=== PATIENT | male | born 1970 ===

== ENCOUNTER 2025-01-11 11:26 | Emergency (ER) | payer OTHER, SELFPAY ==
[2025-01-11 11:43] VITALS: BP 113/54; PULSE 77; RESP 18; TEMP 36.3; O2SAT 100; BMI 23.4
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
[2025-01-11 12:05] VITALS: BP 113/54; PULSE 77; RESP 18; TEMP 36.3; O2SAT 100
--- OUTSIDE RECORDS SUMMARY | 2025-01-11 14:17 | XMS_ITS | Clinical Summary ---
Author Organization [place] [address] [address] [facility] Building Address [address] [place] [address] Phone Care Team Providers Care Cycle Manager Name Role Phone Morgan Parks MD Primary Care Provider [phone] Allergies No known active allergies Medications tiZANidine (Zanaflex) 4 mg tablet Take 1 tablet (4 mg total) by mouth 3 (three) times a day if needed for muscle spasms for up to 10 days. 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 (CMS/HCC V24) 12/28/2019 Elevated rheumatoid factor 03/29/2017 Pain in both hands 03/29/2017 Overview (07/13/2024): S/p CTS release Pain in joints of both feet 03/29/2017 Intrinsic eczema 02/25/2017 Hyperopia with astigmatism and presbyopia 2016 Irritable bowel syndrome 10/05/2016 Cervical spinal stenosis 09/13/2015 Marijuana use 07/14/2015 Immunizations Immunization Administration Dates Next Due Influenza Quadravalent, MDCK , 0.5ml, preservative free (Flucelvax) 6mo and older 01/05/2022,01/27/2021 Influenza trivalent, 0.5mL, preservative free (Fluarix; FluLaval; Fluzone) ages 6mo and older (Afluria) 3 years and older 12/03/2015 Pfizer SARS-CoV-2 COVID-19, mRNA, LNP-S, preservative free 08/23/2021,08/02/2021,01/15/2021 Tdap Tetanus diptheria acell ular pertussis (Boostrix; Adacel) 7yo and older 06/12/2018 Surgical History Surgery Date Site/Laterality Comments COLONOSCOPY 02/24/2016 PROCEDURE: HISTORICAL COLONOSCOPY; COMMENT: Normal exam ESOPHAGOGASTRODUODENOSCOPY PROCEDURE: ID ESOPHAGOGASTRODUODENOSCOPY TRANSORAL DIAGNOSTIC CARPAL TUNNEL RELEASE Bilateral PROCEDURE: HISTORICAL CARPAL TUNNEL REL Medical History Medical History Date Comments CTS (carpal tunnel syndrome) 09/13/2015 DX: CTS (carpal tunnel syndrome); COMMENT: bilateral Cervical spinal stenosis 09/13/2015 DX:Cerv ical spinal stenosis Helicobacter pylori gastritis 03/28/2017 DX :Helicobacter pylori gastritis Asthma DX:Asthma Irritable bowel syndrome DX:Irri table bowel syndrome Trigger finger of right thumb 12/28/2019 DX :Trigger finger of right thumb Family History Medical History Relation Name Comments Arthritis Father Diabetes Father Hypertension Father Arthritis Mother Diabetes Mother alzheimers Hypertension Mother Blindness Sister 1 Arthritis Sister 2 Other: IBS Sister 2 Cataracts Neg Hx Glaucoma Neg Hx Macular degeneration Neg Hx Strabismus Neg Hx Relation Name Status Comments Father Alive Mother Sister 1 Alive Sister 2 Alive Social History Tobacco Use Types Packs/Day Years Used Date Smoking Tobacco: Former Cigarettes S tarted: 1994 Smokeless Tobacco: Current Tobacco Cessation:Ready to Q uit: Not Asked; Counseling Given: Not Answered Alcohol Use Standard Drinks/Week Comments No 0 (1 standard drink = 0.6 oz pur e alcohol) Sex and Gender Information Value Date Recorded Sex Assigned at Not on file Legal Sex Male 1:10 PM EST Gender Identity Not on file Sexual Orientation Not on file Obstetrics History Last Filed Vital Signs Vital Sign Reading Time Taken Comments Blood Pressure 110/60 07/16/2024 9:11 AM EDT Pulse 70 07/16/2024 9:11 AM EDT Temperature - - Respiratory Rate - - Oxygen Saturation - - Inhaled Oxygen Concentration - - Weight 68 kg (150 lb) 07/16/2024 9:11 AM EDT Height 162.6 cm (5' 4 ) 07/16/2024 9:11 AM EDT Body Mass Index 25.75 07/16/2024 9:11 AM EDT Plan of Treatment Health Maintenance Due Date Last Done Comments Colorectal Cancer Screening: Colonoscopy 1970 Hepatitis B Vaccines (1 of 3 - 19+ 3-dose series) 1989 Pneumococcal Vaccine: 50+ Years (1 of 1 - PCV) 2020 Zoster Vaccines (1 of 2) 2020 HIV Screening 02/16/2022 Hepatitis C Screening 02/16/2022 Medicare Annual Wellness Visit 02/16/2022 Social Influencers of Health Screening 02/16/2022 Depression Screening 03/21/2024 COVID-19 Vaccine ( - season) 2024 08/23/2021, 08/02/2021, 01/15/2021 Influenza Vaccine (#1) 2024 , 01/05/2022, 01/27/2021, Additional history exists DTaP,Tdap,and Td Vaccines (2 - Td or Tdap) 06/12/2028 06/12/2018 Cholesterol Screening (Lipid Panel) 12/13/2028 12/14/2023, 12/14/2023 RSV Immunization Adult Patients (1 - 1-dose 75+ series) 2045 HIB Vaccines Aged Out No longer eligi ble based on patient's age to complete this topic HPV Vaccines Aged Out No longer eligi ble based on patient's age to complete this topic Hepatitis A Vaccines Aged Out No long er eligible based on patient's age to complete this topic IPV Vaccines Aged Out No longer eligi ble based on patient's age to complete this topic MMR Vaccines Aged Out No longer eligi ble based on patient's age to complete this topic Meningococcal ACWY Vaccine Aged Out N o longer eligible based on patient's age to complete this topic Meningococcal B Vaccine Aged Out No l onger eligible based on patient's age to complete this topic RSV Immunization Patients Under 20 months Aged Out No longer eligible based on patient's age to complete this topic Varicella Vaccines Aged Out No longer eligible based on patient's age to complete this topic Procedures Procedure Name Priority Date/Time Associated Diagnosis Comments LIPID PANEL Routine 12/14/2023 from Last 3 Months or Most Recently Relevant to Health Maintenance Results * Lipid panel (12/14/2023) LDL/HDL Ratio 4 Triglycerides 134 mg/dL Cholesterol 161 mg/dL HDL 38 mg/dL LDL Cholesterol 97 mg/dL Blood Venous blood specimen / Unknown Historical Provider LAB BLOOD ORDERABLES Brittanie l Result from Last 3 Months or Most Recently Relevant to Health Maintenance Insurance [employer] Member Subscriber Plan / Payer (Ef fective 2018-Present) Name:Kain Deleon Relation to Subscriber:Self Name:Kain Deleon Payer ID:[id number] Group ID:[id number] Type:Not on file Address: [place] [address] [address] [phone] Care Teams Cycle Manager Relationship Specialty Start Date End Date Morgan Parks MD [address] [place] [id number] PCP - General Internal Medicine 03/26/15
== END 2025-01-11 12:06 | disposition home or self-care (01) ==
LOC: HO.ED 12:00
PROVIDERS: Emergency Provider Emergency Medicine; PCP Internal Medicine
DX: M25.562 Pain in left knee (principal); M25.512 Pain in left shoulder; V89.2XXA Person injured in unspecified motor-vehicle accident, traffic, initial encounter; Y93.9 Activity, unspecified; Y92.9 Unspecified place or not applicable
CPT/HCPCS: 99282; 99283